=== PATIENT | female | born 1990 | race Caucasian/White ===

== ENCOUNTER 2022-05-10 13:06 | Outpatient (CLI) | payer MEDICAID, SELFPAY ==
[2022-05-10 18:26] LABS: Chlamydia DNA Amplified* NOT DETECTED (No Detected); GC DNA Amplified* NOT DETECTED (No Detected)
== END 2022-05-10 13:07 | disposition home or self-care (01) ==
PROVIDERS: PCP Family Medicine; Visit Provider Physician Assistant
DX: N92.1 Excessive and frequent menstruation with irregular cycle (principal); R39.15 Urgency of urination
CPT/HCPCS: 84443; 87086; 87491; 87591

== ENCOUNTER 2022-05-18 12:08 | Outpatient (CLI) | payer MEDICAID, SELFPAY ==
--- NOTE | 2022-05-18 12:15 | CRLHL7_ITS ---
For Patients: As a result of the Century Cures Act, medical imaging exams and procedure reports are released immediately into your electronic medical record. You may view this report before your referring provider. If you have questions, please contact your health care provider. INDICATION: PELVIC PAIN LT GREATER THAN RT, AUB COMPARISON: none TECHNIQUE: 2D hughes scale and color Doppler images were acquired of the pelvis using a transabdominal and transvaginal approach. Power Doppler evaluation of both ovaries also performed. FINDINGS: Sonographic images demonstrate a normal size and smooth outer contour of the uterus. Uterus measures 8.3 cm in length by 4.1 cm in AP diameter by 5.0 cm in transverse dimension. The myometrium has a normal uniform echotexture. The endometrial lining measures 11 mm in composite thickness. The right ovary measures 3.9 x 1.8 x 2.2 cm in size and the left ovary measures 3.9 x 2.1 x 2.5 cm. The ovaries demonstrate normal arterial and venous blood flow on color Doppler analysis. Normal power Doppler evaluation of the ovaries. No torsion. There are no suspicious fluid collections within the cul-de-sac. IMPRESSION: Endometrial thickness 11 millimeters. Normal ovaries. No torsion. Dictated by Chencho Ledesma MD @ 05/18/2022 1:38:59 PM (Electronically Signed)
== END 2022-05-18 12:09 | disposition home or self-care (01) ==
LOC: US 12:09
PROVIDERS: Visit Provider Physician Assistant
DX: N92.1 Excessive and frequent menstruation with irregular cycle (principal); R93.89 Abnormal findings on diagnostic imaging of other specified body structures; R10.2 Pelvic and perineal pain
CPT/HCPCS: 76830; 76856; 93976

== ENCOUNTER 2022-09-14 13:34 | Outpatient (CLI) | payer MEDICAID, SELFPAY ==
[2022-09-14 17:57] LABS: Chlamydia DNA Amplified* NOT DETECTED (No Detected); GC DNA Amplified* NOT DETECTED (No Detected)
== END 2022-09-14 13:35 | disposition home or self-care (01) ==
PROVIDERS: Visit Provider Registered Nurse
DX: N39.41 Urge incontinence (principal); N94.9 Unspecified condition associated with female genital organs and menstrual cycle; Z11.3 Encounter for screening for infections with a predominantly sexual mode of transmission
CPT/HCPCS: 87086; 87491; 87591

== ENCOUNTER 2023-01-27 11:48 | Outpatient (CLI) | payer MEDICAID, SELFPAY ==
--- NOTE | 2023-01-27 11:15 | CRLHL7_ITS ---
For Patients: As a result of the Century Cures Act, medical imaging exams and procedure reports are released immediately into your electronic medical record. You may view this report before your referring provider. If you have questions, please contact your health care provider. INDICATION: Migraine syndrome. Comparison none. TECHNIQUE: Multiplanar T1, T2, FLAIR and diffusion-weighted imaging.. Post gadolinium T1 weighted sequences. Additional pre and post gadolinium sequences of the sella. FINDINGS: Normal brain parenchymal morphology and signal intensity. No intracranial hemorrhage. No abnormal ventricular dilatation. Intracranial vascular flow voids are preserved. No mass effect. No midline shift. No restricted diffusion to suggest acute ischemia. No abnormal enhancement or enhancing lesions within the brain parenchyma. Dedicated sequences of the sella demonstrates normal morphology of the pituitary gland. No sellar suprasellar mass. Normal infundibulum at midline. 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 Normal cavernous sinuses bilaterally. The visualized paranasal sinuses and mastoid air cells are unremarkable. IMPRESSION: 1. No acute intracranial abnormality. 2. Normal brain parenchymal morphology and signal intensity. 3. No abnormal enhancement or enhancing lesions within the brain parenchyma. 4. Dedicated sequences of the sella demonstrates normal morphology of the pituitary gland. 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 No suprasellar mass. Normal cavernous sinuses. Dictated by Andre Goodson MD @ 01/27/2023 3:57:14 PM (Electronically Signed)
== END 2023-01-27 11:49 | disposition home or self-care (01) ==
LOC: MRI 11:49
PROVIDERS: PCP Family Medicine; Visit Provider Family Medicine
DX: G43.909 Migraine, unspecified, not intractable, without status migrainosus (principal)
CPT/HCPCS: 70553; A9575

== ENCOUNTER 2023-09-22 11:45 | Outpatient (CLI) | payer MEDICAID, SELFPAY ==
[2023-09-22 16:16] LABS: Chlamydia DNA Amplified* NOT DETECTED (No Detected); GC DNA Amplified* NOT DETECTED (No Detected)
== END 2023-09-22 11:46 | disposition home or self-care (01) ==
LOC: NFLDREF 11:46
PROVIDERS: Visit Provider Obstetrics & Gynecology
DX: N89.8 Other specified noninflammatory disorders of vagina (principal)
CPT/HCPCS: 87491; 87591

== ENCOUNTER 2024-05-29 07:13 | Emergency (ER) | payer MEDICAID, SELFPAY ==
[2024-05-29 07:31] VITALS: BP 138/85; PULSE 88; RESP 18; TEMP 37.2; O2SAT 96; BMI 25.0
--- NOTE | 2024-05-29 07:49 | CRLHL7_ITS ---
For Patients: As a result of the Century Cures Act, medical imaging exams and procedure reports are released immediately into your electronic medical record. You may view this report before your referring provider. If you have questions, please contact your health care provider. INDICATION: Left chest pain with coarse wheezing COMPARISON: None TECHNIQUE: PA and lateral views of the chest were acquired FINDINGS: TUBES AND LINES: None. HEART AND MEDIASTINUM: The heart size is normal. The mediastinal contour appears normal for patient age. LUNGS AND PLEURAL SPACES: The lungs appear normal.The pleural spaces are unremarkable. OSSEOUS STRUCTURES: Age-appropriate appearance. No acute focal finding. IMPRESSION: No evidence of active pulmonary disease. Dictated by Tyrese Esquivel MD @ 05/29/2024 8:07:09 AM (Electronically Signed)
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
[2024-05-29 08:00] VITALS: O2SAT 99
[2024-05-29] MEDS: DOXYCYCLINE HYCLATE 100 MG PO (08:11)
[2024-05-29] MEDS: 0.9 % SODIUM CHLORIDE 1000 ml 1,000 ML IV (08:17)
[2024-05-29] MEDS: IPRAT-ALBUT 0.5-2.5 MG/3 ML NEB 1 NEB IH (08:17)
[2024-05-29] MEDS: predniSONE 20 MG TABLET 40 MG PO (08:24)
[2024-05-29 08:27] LABS: Basophils Absolute Auto 0.02 K/uL (0.00-0.30); Basophils Percent Auto 0.4 % (0.0-3.0); Eosinophils Absolute Auto 0.05 K/uL (0.00-0.50); Hematocrit 40.3 % (33.0-51.0); Hemoglobin* 14.2 gm/dL (12.0-16.0); Immature Granulocytes Abs Auto 0.01 K/uL (0.00-0.30); Immature Granulocytes Pct Auto 0.2 %; Lymphocytes Percent Auto 11.2 % (20-44); Mean Corpuscular HGB Conc 35 gm/dL (32-36); Mean Corpuscular Hemoglobin 33 pg (26-34); Mean Corpuscular Volume 94 fL (80-100); Monocytes Percent Auto 8.8 % (0.0-11.0); Neutrophils Percent Auto 78.4 % (42.0-72.0); Platelet Count* 199 K/uL (140-440); RDW Coefficient of Variation % 11.6 % (11.5-15.5); Red Blood Count 4.28 m/uL (4.00-5.20); White Blood Count* 4.91 K/uL (4.50-11.00)
[2024-05-29 08:37] LABS: Slide Review Reflex No
[2024-05-29 08:44] LABS: Lactate* 0.8 mmol/L (0.5-1.9)
[2024-05-29 08:50] LABS: Chloride* 103 mmol/L (96-114)
[2024-05-29 08:51] LABS: Albumin* 4.8 g/dL (3.3-5.0); Potassium* 3.5 mmol/L (3.6-5.1); Sodium* 139 mmol/L (135-149)
[2024-05-29 08:53] LABS: Creatinine* 0.8 mg/dL (0.5-1.5); Est. Creatinine Clearance* 91.88; Estimated Glomerular Filt Rate 98 ml/min
[2024-05-29 08:54] LABS: Alanine Aminotransferase* 23 U/L (4-35); Alkaline Phosphatase* 60 U/L (40-150); Anion Gap 9 mEq/L (7-15); Aspartate Amino Transferase* 33 U/L (12-35); Bilirubin Total* 0.5 mg/dL (0.1-1.5); Blood Urea Nitrogen* 9 mg/dL (5-24); Calcium* 9.3 mg/dL (8.4-10.6); Carbon Dioxide* 27 mmol/L (20-32); Glucose* 96 mg/dL (60-115); Total Protein* 7.6 g/dL (6.0-8.3)
[2024-05-29 08:57] LABS: C Reactive Protein* 3.9 mg/dL (0.5-1.0)
[2024-05-29 09:00] VITALS: PULSE 80; RESP 14; O2SAT 98
[2024-05-29 09:08] LABS: PCR FLU A Negative PCR FLU A (Negative); PCR FLU B Negative PCR FLU B (Negative); PCR RSV Negative PCR RSV (Negative); SARS PCR* Negative SARS-CoV-2 (Negative)
[2024-05-29 09:30] VITALS: PULSE 72; RESP 14; O2SAT 99
[2024-05-29 09:40] VITALS: BP 138/85; PULSE 88; RESP 14; TEMP 37.2
== END 2024-05-29 09:41 | disposition home or self-care (01) ==
LOC: ED 08:37
PROVIDERS: Emergency Provider Family Medicine
DX: S20.212A Contusion of left front wall of thorax, initial encounter (principal); J40 Bronchitis, not specified as acute or chronic
CPT/HCPCS: 36415; 71046; 80053; 83605; 85025; 86140; 87631; 94761; 99284; A9270; J7030; J7512

== ENCOUNTER 2025-05-16 14:24 | Outpatient (CLI) | payer MEDICAID, SELFPAY ==
[2025-05-16 18:14] LABS: Bacterial Vaginosis* Negative (Negative); Candida glab/krus NOT DETECTED (No Detected)
[2025-05-16 18:45] LABS: Chlamydia DNA Amplified* NOT DETECTED (No Detected); GC DNA Amplified* NOT DETECTED (No Detected)
[2025-05-19 15:52] LABS: HPV Source Cervix
[2025-05-29 14:34] LABS: Pap Test Digital Imaging Done
== END 2025-05-16 14:25 | disposition home or self-care (01) ==
PROVIDERS: Visit Provider Obstetrics & Gynecology
DX: N94.89 Other specified conditions associated with female genital organs and menstrual cycle (principal); L29.2 Pruritus vulvae; Z12.4 Encounter for screening for malignant neoplasm of cervix; Z11.51 Encounter for screening for human papillomavirus (HPV); Z11.3 Encounter for screening for infections with a predominantly sexual mode of transmission
CPT/HCPCS: 81513; 87252; 87481; 87491; 87591; 87624; 87625; 87661; 88141; 88142; 88175

== ENCOUNTER 2025-05-21 12:09 | Outpatient (CLI) | payer MEDICAID, SELFPAY | END 2025-05-21 12:10 | disposition home or self-care (01) | LOC: NFLDREF 05-23 12:12 | PROVIDERS: Visit Provider Obstetrics & Gynecology | DX: Z11.3 Encounter for screening for infections with a predominantly sexual mode of transmission (principal); Z11.4 Encounter for screening for human immunodeficiency virus [HIV]; Z11.59 Encounter for screening for other viral diseases | CPT/HCPCS: 86592; 86694; 86703; 86706; 86803; 87340 ==